=== PATIENT | male | born 1955 | race Caucasian/White ===

== ENCOUNTER → 2017-03-24 | Outpatient (CLI) | payer BC ==
--- NOTE | 2017-03-24 08:41 | Diagnostic Imaging Report ---
INDICATION: Injury to right hand. TIME OF EXAM: 8:48 AM 3 views of the right hand were obtained. FINDINGS: The metacarpals are intact. The phalanges appear intact. No fractures are seen. The carpus is unremarkable. Joint spaces are fairly well-maintained. IMPRESSION: No acute bony abnormality is detected. Dictated by: Dictated on workstation # [id number]
== END ==
LOC: RAD 08:12
PROVIDERS: ATTEND Nurse Practitioner Family
DX: S69.91XA Unspecified injury of right wrist, hand and finger(s), initial encounter (principal)
CPT/HCPCS: 73130

== ENCOUNTER → 2017-11-08 | Outpatient (CLI) | payer BC ==
[2017-11-08 07:54] LABS: ALANINE AMINOTRANSFERASE 23 U/L (0-55); ALBUMIN 4.2 GM/DL (3.2-4.5); ALKALINE PHOSPHATASE 53 U/L (40-136); BILIRUBIN,TOTAL 0.9 MG/DL (0.1-1.0); BUN/CREATININE RATIO 11; CALCIUM 9.5 MG/DL (8.5-10.1); CARBON DIOXIDE 26 MMOL/L (21-32); CHLORIDE 102 MMOL/L (98-107); CREATININE SERUM 0.76 MG/DL (0.60-1.30); GFR ESTIMATED > 60; GLUCOSE 158 MG/DL (70-105); POTASSIUM 4.1 MMOL/L (3.6-5.0); SODIUM 136 MMOL/L (135-145)
--- NOTE | 2017-11-08 09:06 | Diagnostic Imaging Report ---
PROCEDURE: MR imaging of the brain without contrast. TECHNIQUE: Multiplanar, multisequence MR imaging of the brain was performed without contrast. INDICATION: Slurred speech and dysphasia with right-sided facial droop one week ago. COMPARISON: No prior studies are available for comparison. FINDINGS: Ventricles and sulci are within normal limits. There is marked periventricular and subcortical white matter signal abnormality noted, consistent with chronic microvascular ischemia. No diffusion restriction is identified to suggest acute ischemia. Normal expected flow-voids within the carotid siphons are seen. There is no midline shift. No acute intra-axial or extra-axial hemorrhage is identified. The corpus callosum is unremarkable. The sella and parasellar structures are unremarkable. IMPRESSION: Extensive periventricular and subcortical white matter changes consistent with chronic microvascular ischemia. No acute intracranial process is identified. Dictated by: Dictated on workstation # [id number]
--- NOTE | 2017-11-08 09:41 | Diagnostic Imaging Report ---
PROCEDURE: MR angiography neck without contrast. TECHNIQUE: Non contrast enhanced MR angiography of the neck was performed. Source data was reformatted into rotating MIP projections. INDICATION: Episode of slurred speech, dysphasia and right-sided facial droop one week ago. FINDINGS: Both common carotid arteries are widely patent. The carotid bifurcations are unremarkable. The visualized internal carotid arteries appear widely patent. No stenosis is detected. Visualized vertebral arteries are patent. IMPRESSION: Unremarkable MRA of the neck. Dictated by: Dictated on workstation # [id number]
== END ==
LOC: RAD 07:11
PROVIDERS: ATTEND Family Medicine
DX: E11.9 Type 2 diabetes mellitus without complications (principal); R29.810 Facial weakness; R47.02 Dysphasia; R90.82 White matter disease, unspecified; R47.81 Slurred speech
CPT/HCPCS: 36415; 70547; 70551; 80053; 83036

== ENCOUNTER → 2017-11-24 | Outpatient (CLI) | payer BC ==
[~2017-11-24] MED LIST: ASPI-586 PO; ATOR40TA70 PO; LISI10TA2 PO; METF-397 PO
--- NOTE | 2017-11-24 12:37 | Diagnostic Imaging Report ---
INDICATION: Recent stroke and dysphagia. PROCEDURE: The procedure was performed in conjunction with speech pathology. Videofluoroscopy was performed during swallowing of barium at multiple consistencies. A total of 2 minutes and 9 seconds of fluoroscopic time was utilized. Patient ingested thin and thick barium as well as barium paste, pur?e, mechanical soft and soft consistency. There is mild early spillover with multiple consistencies. There were 2-3 episodes of laryngeal penetration during swallowing of thick barium. However, this was with large boluses. No penetration was observed with any other consistency. No aspiration was observed. There is no significant vallecular or piriform sinus residue. IMPRESSION: Essentially unremarkable video swallow apart from episode of penetration during swallowing of thick barium. No aspiration was observed. Dictated by: Dictated on workstation # [id number]
== END ==
LOC: RAD 09:45
PROVIDERS: ATTEND Family Medicine
DX: I69.991 Dysphagia following unspecified cerebrovascular disease (principal); R13.10 Dysphagia, unspecified
CPT/HCPCS: 74230

== ENCOUNTER 2017-11-27 05:40 | Outpatient (CLI) | payer BC ==
[~2017-11-27] VITALS: Ht 177.8 cm; Wt 90.7 kg
[2017-11-27] MEDS ORDERED: ATOR40TA70 PO (11:05)
[2017-11-27] MEDS ORDERED: METF-397 PO (11:05)
[2017-11-27] MEDS ORDERED: LISI10TA2 PO (11:05)
[2017-11-27] MEDS ORDERED: ASPI-586 PO (11:06)
== END 2017-11-27 11:10 | disposition home or self-care (01) ==
LOC: PREOP 05:40
PROVIDERS: ATTEND Surgery
DX: Z01.818 Encounter for other preprocedural examination (principal)

== ENCOUNTER 2017-12-04 08:11 | Day surgery (SDC) | payer BC ==
[~2017-12-04] VITALS: Ht 177.8 cm; Wt 90.7 kg
--- OUTSIDE RECORDS SUMMARY | 2017-12-04 08:17 | XMS REPORT | Continuity of Care Document ---
Demographics Preferred Language Unknown Marital Status Unknown Taoist Affiliation Unknown Race Unknown Ethnic Group Unknown Author Author [facility] Address Unknown Phone Unavailable Allergies Active Description Code Type Severity Reaction Onset Reported/Identified Relationship to Patient Clinical Status Yes No Known Allergies [id number] Miscellaneous Allergy Unknown N/A Yes No Known Drug Allergies [id number] Drug Allergy Unknown N/A 11/27/2017 Medications There is no data. 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, UNSPECIFIED 11/22/2017 BENJAMIN STEWART MD Ot E11.9 TYPE 2 DIABETES MELLITUS WITHOUT COMPLIC 11/22/2017 BENJAMIN STEWART MD Ot R29.810 FACIAL WEAKNESS 11/22/2017 BENJAMIN STEWART MD, Ot R47.02 DYSPHASIA 11/22/2017 BENJAMIN STEWART MD, Ot R47.81 SLURRED SPEECH 11/22/2017 BENJAMIN STEWART MD, Ot 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 Results Test Result Range CBC WITH DIFF - 10/28/17 10:45 FINGER STICK NO CBCWITHDIFF WBC 5.9 10^3uL 4.0 - 11.0 RBC 4.44 10^6uL 4.20 - 5.40 HEMOGLOBIN 14.7 g/dL 13.5 - 16.0 HEMATOCRIT 41.0 % 35.0 - 58.0 MCV 92.3 fl 78.0 - 95.0 MCH 33.1 pg 25.0 - 35.0 MCHC 35.9 g/dL 32.0 - 36.0 RDW 13.3 % 11.5 - 14.5 PLATELETS 154 10^3uL 130 - 400 %NEUTROPHILS 57.8 % 35.0 - 75.0 %LYMPHOCYTES 30.7 % 20.0 - 53.0 %MONOCYTES 9.5 % 0.0 - 10.0 %EOSINOPHILS 1.20 % 0.00 - 8.00 %BASOPHILS 0.50 % 0.00 - 2.00 %IG 0.30 % 0.00 - 0.90 #NEUTROPHILS 3.40 1.80 - 7.50 #LYMPHOCYTES 1.81 0.70 - 3.10 #MONOCYTES 0.56 0.20 - 0.90 #EOSINOPHILS 0.07 0.00 - 0.50 #BASOPHILS 0.03 0.00 - 0.10 #IG 0.02 0.00 - 0.03 MANUAL DIFF NOT INDICATED RBC MORPH NOT INDICATED %NRBC 0.00 % 0.00 - 10.00 #NRBC 0.00 0.40 - 1.10 PT/PTT - 10/28/17 10:45 PROTIME 11.4 secs 8.1 - 12.6 INR 1.0 0.7 - 1.2 PTT 32.4 secs 25.2 - 37.5 PT/PTT COMP METABOLIC PROFILE - 10/28/17 10:45 COMPMETABOLICPROFILE FASTING SPECIMEN? UNKNOWN FINGER STICK NO SODIUM 130 mmol/L 136 - 145 POTASSIUM 3.8 mmol/L 3.5 - 5.3 CHLORIDE 96 mmol/L 98 - 107 TOTAL CO2 28 mmol/L 21 - 32 GLUCOSE 273 mg/dL 65 - 110 BUN 8 mg/dL 7 - 18 CREATININE 0.8 mg/dL 0.8 - 1.1 TOTAL BILI 1.0 mg/dL 0.0 - 1.0 DIRECT BILI 0.2 mg/dL 0.0 - 0.3 INDIRECT BILI 0.8 mg/dl 0.1 - 1.0 ALKALINE PHOS 71 U/L 50 - 136 SGPT/ALT 35 U/L 12 - 78 SGOT/AST 13 U/L 15 - 45 TOTAL PROTEIN 7.8 g/dL 6.4 - 8.2 ALBUMIN 3.9 g/dL 3.4 - 5.6 CALCIUM 9.1 mg/dL 8.5 - 10.0 AGE 62 YEARS GFR 104 ml/min/1.7 eGFR >60 mL/min/1.7 GFR >60 mL/min/1.7 TROP I - 10/28/17 10:45 TROP I <0.02 ng/ml 0.00 - 0.06 UA WITH MICROSCOPY/CULTURE IF INDICATED - 10/28/17 12:10 URINE SAMPLE RANDOM U COLOR Yellow NORMAL: STRAW-YELLOW U TURBIDITY Clear NORMAL: CLEAR U SP GRAVITY 1.015 NORMAL: 1.005-1.030 U NITRITE Negative NORMAL: NEGATIVE U pH 7.5 NORMAL: 5.0-8.0 U PROTEIN Negative NORMAL: NEGATIVE U GLUCOSE 3+ NORMAL: NEGATIVE U KETONES Negative NORMAL: NEGATIVE U UROBILINOGEN 1.0 NORMAL: 0.2 mg/dl U BILIRUBIN Negative NORMAL: NEGATIVE U BLOOD Negative NORMAL: NEG - TRACE U LEUKO ANTHONY Negative NORMAL: NEGATIVE U MICROSCOPIC Not Indicated U CULTURE SET NO Sample of Urine: 10 ML UAMICROSCOPYANDCULTUREIFINDICATED Comprehensive metabolic panel - 11/08/17 07:25 Serum or plasma sodium measurement (moles/volume) 136 mmol/L 135-145 Serum or plasma potassium measurement (moles/volume) 4.1 mmol/L 3.6-5.0 Serum or plasma chloride measurement (moles/volume) 102 mmol/L 98-107 Carbon dioxide 26 mmol/L 21-32 Serum or plasma anion gap determination (moles/volume) 8 mmol/L 5-14 Serum or plasma urea nitrogen measurement (mass/volume) 8 mg/dL 7-18 Serum or plasma creatinine measurement (mass/volume) 0.76 mg/dL 0.60-1.30 Serum or plasma urea nitrogen/creatinine mass ratio 11 NRG Serum or plasma creatinine measurement with calculation of estimated glomerular filtration rate > NRG Serum or plasma glucose measurement (mass/volume) 158 mg/dL 70-105 Serum or plasma calcium measurement (mass/volume) 9.5 mg/dL 8.5-10.1 Serum or plasma total bilirubin measurement (mass/volume) 0.9 mg/dL 0.1-1.0 Serum or plasma alkaline phosphatase measurement (enzymatic activity/volume) 53 U/L 40-136 Serum or plasma aspartate aminotransferase measurement (enzymatic activity/ volume) 16 U/L 5-34 Serum or plasma alanine aminotransferase measurement (enzymatic activity/volume ) 23 U/L 0-55 Serum or plasma protein measurement (mass/volume) 7.0 g/dL 6.4-8.2 Serum or plasma albumin measurement (mass/volume) 4.2 g/dL 3.2-4.5 CALCIUM CORRECTED 9.3 mg/dL 8.5-10.1 Hemoglobin A1c - 11/08/17 07:25 Blood hemoglobin A1C measurement (mass/volume) 7.0 % 4.0- 5.6 MEAN BLOOD GLUCOSE 154 % <=126 Encounters ACCT No. Visit Date/Time Discharge Status Pt. Type Provider Facility Loc./Unit Complaint [id number] 12/30/2011 10:07:00 12/30/2011 23:59:59 CLS Outpatient [id number] 10/28/2017 10:42:00 10/28/2017 12:40:00 DIS Emergency JOESHANA AVILAEL [facility] 042 [id number] 11/30/2017 10:42:00 11/30/2017 23:59:59 CLS Preadmit BENJAMIN STEWART MD [facility] REHAB CVA [id number] 11/27/2017 05:40:00 11/27/2017 11:10:00 DIS Outpatient DEBO LEACH MD [facility] PREOP COLONOSCOPY [id number] 11/24/2017 09:45:00 11/24/2017 23:59:59 CLS Outpatient BENJAMIN STEWART MD [facility] RAD DYSPHAGIA [id number] 11/20/2017 10:10:00 11/20/2017 23:59:59 CLS Preadmit BENJAMIN STEWART MD [facility] CARD SLURRED SPEECH,FACIAL DROOP [id number] 11/20/2017 10:04:00 11/20/2017 23:59:59 CLS Preadmit BENJAMIN STEWART MD [facility] RAD SLURRED SPEECH, FACIAL DROOP [id number] 11/08/2017 07:11:00 11/08/2017 23:59:59 CLS Outpatient PAT DARNELL, BENJAMIN Lama [facility] RAD SLURRED SPEECH,FACIAL DROOP,DYSPHAGIA [id number] 03/24/2017 08:12:00 03/24/2017 23:59:59 CLS Outpatient GLORIA BELLAMY APRN [facility] RAD M79.641 [id number] 12/04/2017 08:00:00 PEN Preadmit HAYLEE DARNELL, DEBO Abdi [facility] ENDO SCREENING
[2017-12-04] MEDS ORDERED: NS IV 500 ML 500 ML IV PRN (08:23)
[2017-12-04] MEDS ORDERED: NS IV 500 ML 500 ML ONE (08:25)
[2017-12-04] MEDS ORDERED: MIDAZOLAM 2 MG/2 ML (VERSED) VIAL IVP ONE (08:30)
[2017-12-04] MEDS ORDERED: fentaNYL INJECTION 100 MCG/2 ML AMP IVP ONE (08:30)
[2017-12-04] MEDS ORDERED: fentaNYL INJECTION 100 MCG/2 ML AMP ONE (09:42)
[2017-12-04] MEDS ORDERED: MIDAZOLAM 2 MG/2 ML (VERSED) VIAL ONE ×3 (09:42)
--- NOTE | 2017-12-04 10:32 | Endo Procedure Record ---
Endo Procedure Report Date of Procedure Last Colonoscopy: Yes Dec 04, 2017 Surgeon (s) DEBO LEACH MD Post Procedure/Op Diagnosis sigmoid diverticulosis Procedure Performed colonoscopy to cecum Description of Procedure Anesthesia Type: Conscious Sedation Specimen(s) collected/removed none Description of the Procedure Indication for the procedure: This gentleman came in for screening colonoscopy. He denied any relevant family history. Due to recent cerebrovascular accident , it was felt reasonable to continue his aspirin. Increased incidence of bleeding, should polypectomy be performed in view of aspirin therapy was discussed with him and informed consent obtained. Description of the procedure: He was placed in left lateral position and vital signs were monitored. Conscious sedation was achieved using Versed and fentanyl. Digital rectal examination was unremarkable. The colonoscope was then introduced into the rectum and advanced to the cecum The quality of bowel preparation was reasonable. The scope was then withdrawn slowly and the mucosa examined in a systematic fashion. Findings: Sigmoid diverticulosis. He tolerated the procedure well and was taken back to the nursing area in a stable condition. Impression: Screening colonoscopy. No polyps. Incidental diverticulosis. No family history. Recommend repeating in 10 years. Copy Copies To 1: BENJAMIN STEWART MD, XAVIER M MD Dec 04, 2017 10:32
--- NOTE | 2017-12-04 10:36 | Conscious Sedation/ASA ---
Conscious Sedation Pre-Proced Time 09:50 ASA Score 2 For ASA 3 and 4: Consider anesthesia and medical clearance. Also, for patients with a history of failed moderate sedation consider anesthesia. Airway Lungs Heart ASA score ASA 1: a normal healthy patient ASA 2: a patient with a mild systemic disease (mid diabetes, controlled hypertension, obesity ASA 3: a patient with a severe systemic disease that limits activity (angina , COPD, prior Myocardial infarction) ASA 4: a patient with an incapacitating disease that is a constant threat to life (CHF, renal failure) ASA 5: a moribund patient not expected to survive 24 hrs. (ruptured aneurysm) ASA 6: a declared brain patient whose organs are being harvested. For emergent operations, add the letter E after the classification Mallampati Classification Grade 1 Sedation Plan Discussed options with patient/fam The patient is an appropriate candidate to undergo the planned procedure, sedation, and anesthesia. The patient immediately re-assessed prior to indication. DEBO LEACH MD Dec 04, 2017 10:36
--- NOTE | 2017-12-04 10:36 | History & Physicial ---
History of Present Illness History of Present Illness Reason for visit/HPI to undergo screening colonoscopy. No family history of colon cancer.Cerebrovascular accident a month ago, with very minimal impairment of motor function. Date of Admission 12/04/17 Date Seen by a Provider: Dec 04, 2017 Time Seen by a Provider: 09:45 I consulted on this patient on 12/04/17 10:32 Attending Physician Debo Miranda MD Admitting Physician Akbar Mancilla MD Consult Allergies and Home Medications Allergies Coded Allergies: No Known Drug Allergies (Unverified , 11/27/17) Home Medications Aspirin 81 Mg Tablet.dr, 81 MG PO DAILY, (Reported) Atorvastatin Calcium 40 Mg Tablet, 40 MG PO HS, (Reported) Lisinopril 10 Mg Tablet, 10 MG PO BID, (Reported) Metformin HCl 500 Mg Tablet, 500 MG PO BID, (Reported) Patient Home Medication List Home Medication List Reviewed: Yes Past Lfqqqjr-Goxzau-Dvgzwi Hx Patient Social History Marrital Status: Employed/Student: employed Recent Foreign Travel: No Contact w/other who traveled: No Respiratory No Cardiovascular No Gastrointestinal No Musculoskeletal No Endocrine History of Endocrine Disorders: No HEENT History of HEENT Disorders: No Cancer No Review of Systems Constitutional: no symptoms reported EENTM: no symptoms reported Respiratory: no symptoms reported Cardiovascular: no symptoms reported Gastrointestinal: no symptoms reported Genitourinary: no symptoms reported Musculoskeletal: no symptoms reported Skin: no symptoms reported Psychiatric/Neurological: See HPI Physical Exam Vital Signs Capillary Refill : Height, Weight, BMI Height: '" Weight: lbs. oz. kg; BMI Method: General Appearance: No Apparent Distress Neck: Normal Inspection Gastrointestinal: Non Tender, Soft Rectal: Deferred Neurologic/Psychiatric: Alert, Oriented x3 Skin: Warm/Dry Assessment/Plan Assessment and Plan gentleman to undergo screening colonoscopy. Recent stroke, recovery. Aspirin therapy. Increased risk of post polypectomy bleeding, should a polyp be discovered and the inherent complications of perforation discussed thoroughly. Seems to be in agreement to proceed Admission Diagnosis Admission Status: Other (Outpt Proc) DEBO MIRANDA MD Dec 04, 2017 10:36
--- NOTE | 2017-12-04 10:38 | Discharge Inst-Simple/Standard ---
Discharge Inst-Standard Discharge Medications New, Converted or Re-Newed RX: Other Patient Instructions/Follow Up Plan of Care/Instructions/FU: repeat colonoscopy in 10 years. Please provide information on diverticular disease and diet Activity as Tolerated: Yes Discharge Diet: No Restrictions DEBO LEACH MD Dec 04, 2017 10:38
[2017-12-04 10:40] VITALS: BP 107/61
[2017-12-04 11:10] VITALS: BP 117/74
[2017-12-04 11:21] VITALS: BP 137/84
[2017-12-04 11:50] VITALS: BP 137/84
== END 2017-12-04 11:50 | disposition home or self-care (01) ==
LOC: ENDO 08:11
PROVIDERS: ATTEND Surgery
DX: Z12.11 Encounter for screening for malignant neoplasm of colon (principal); K57.30 Diverticulosis of large intestine without perforation or abscess without bleeding; Z86.73 Personal history of transient ischemic attack (TIA), and cerebral infarction without residual deficits; Z79.82 Long term (current) use of aspirin; Z79.84 Long term (current) use of oral hypoglycemic drugs; Z79.899 Other long term (current) drug therapy

== ENCOUNTER → 2017-12-14 | Outpatient (CLI) | payer BC | LOC: CARD 11:52 | PROVIDERS: ATTEND Family Medicine | DX: R47.81 Slurred speech (principal); R29.810 Facial weakness; R13.10 Dysphagia, unspecified | CPT/HCPCS: 93306 ==

== ENCOUNTER 2017-12-26 20:32 | Outpatient (CLI) | payer BC | END 2017-12-27 06:35 | disposition home or self-care (01) | LOC: SLEEP 20:32 | PROVIDERS: ATTEND Family Medicine | DX: G47.33 Obstructive sleep apnea (adult) (pediatric) (principal); R06.83 Snoring; R53.83 Other fatigue; Z86.73 Personal history of transient ischemic attack (TIA), and cerebral infarction without residual deficits | CPT/HCPCS: 95811 ==

== ENCOUNTER 2018-01-18 11:30 | Outpatient (RCR) | payer BC | END 2018-02-28 | disposition home or self-care (01) | PROVIDERS: ATTEND Family Medicine | DX: I69.391 Dysphagia following cerebral infarction (principal); I69.321 Dysphasia following cerebral infarction ==

== ENCOUNTER → 2019-04-29 | Outpatient (CLI) | payer BC ==
--- NOTE | 2019-04-29 07:58 | Diagnostic Imaging Report ---
PROCEDURE: US Gallbladder. TECHNIQUE: Multiple real-time grayscale images were obtained over the right upper quadrant in various projections. INDICATION: Right upper quadrant pain, diarrhea COMPARISON: None available FINDINGS: The liver demonstrates diffusely increased echogenicity without focal hepatic mass. The gallbladder is completely contracted. There is borderline thickening of the gallbladder wall measuring 4 mm. No significant pericholecystic fluid. Negative sonographic Lopez sign. The common bile duct was unable to be visualized secondary to overlying bowel gas. Visualized portions of the pancreas are unremarkable. Visualized portions of the abdominal aorta are unremarkable though is not well seen secondary to overlying bowel gas. The partially visualized inferior vena cava is unremarkable. The right kidney is unremarkable without evidence of hydronephrosis or solid renal mass. No significant free fluid. IMPRESSION: Mild gallbladder wall thickening, favored to relate to the gallbladder being completely contracted. Fatty infiltration of the liver. Otherwise, unremarkable exam. Dictated by: Dictated on workstation # [id number]
== END ==
LOC: RAD 06:52
PROVIDERS: ATTEND Family Medicine
DX: K82.8 Other specified diseases of gallbladder (principal)
CPT/HCPCS: 76705

== ENCOUNTER → 2020-08-06 | Outpatient (CLI) | payer BC, MEDICARE ==
[~2020-08-06] MED LIST changes: -LISI10TA2 PO; +LISI10TA25 PO
--- NOTE | 2020-08-06 13:08 | Diagnostic Imaging Report ---
EXAMINATION: CT chest without contrast (lung screening). TECHNIQUE: Multiple contiguous axial images were obtained through the chest without the use of intravenous contrast according to lung cancer screening protocol. All CT scans use one or more of the following dose optimizing techniques: automated exposure control, MA and/or KvP adjustment based on patient size and exam type or iterative reconstruction. HISTORY: 16 pack year history of smoking. COMPARISON: None available. FINDINGS: Thyroid: The thyroid is normal. Mediastinum: Heart size is normal with small pericardial effusion. Calcifications of the aorta and coronary vessels. Thoracic aorta is normal in caliber. There are calcified mediastinal lymph nodes. There is a prominent subcarinal lymph node measuring up to 1.4 cm in short axis. Lungs and airways: There are moderate bilateral pleural effusions with adjacent atelectasis or consolidation. No pneumothorax. Pulmonary nodules measuring up to 0.3 cm in the right middle lobe. The airways are normal. Upper abdomen: Calcified granuloma within the liver. Musculoskeletal: Degenerative changes of the spine without suspicious osseous lesion or compression fracture. IMPRESSION: 1. Pulmonary nodules measuring up to 0.3 cm. Recommend continued annual low-dose CT screening. 2. Moderate bilateral pleural effusions and prominent subcarinal lymph node are nonspecific. LUNG-RADS CATEGORY: 2 MODIFIER: None. Dictated by: Dictated on workstation # [id number]
== END ==
LOC: RAD 12:45
PROVIDERS: ATTEND Family Medicine
DX: Z12.2 Encounter for screening for malignant neoplasm of respiratory organs (principal); J90 Pleural effusion, not elsewhere classified; R91.8 Other nonspecific abnormal finding of lung field; Z87.891 Personal history of nicotine dependence
CPT/HCPCS: 71271

== ENCOUNTER → 2020-08-26 | Outpatient (CLI) | payer BC | LOC: CARD 08:30 | PROVIDERS: ATTEND Family Medicine | DX: I08.3 Combined rheumatic disorders of mitral, aortic and tricuspid valves (principal); J90 Pleural effusion, not elsewhere classified | CPT/HCPCS: 93306 ==

== ENCOUNTER → 2021-09-22 | Outpatient (CLI) | payer BC, MEDICARE ==
--- NOTE | 2021-09-22 11:28 | Diagnostic Imaging Report ---
EXAMINATION: CT Lung Screening. INDICATION: 03-oalf-htdv smoking history, for annual low-dose CT screening. TECHNIQUE: Noncontrast, low-dose CT imaging performed according to the lung cancer screening protocol. Auto Exposure Controls were utilized during the CT exam to meet ALARA standards for radiation dose reduction. COMPARISON: 08/06/2020. FINDINGS: No dominant spiculated or suspicious lung mass. Benign calcified granuloma in the right middle lobe is chronic. A few minute 2-3 mm subpleural micronodules are stable. No findings of lung cancer. No evidence for pulmonary edema or pneumonia. Previous sternotomy without dehiscence. There are dense calcifications of the [place] aortic vessels. No pleural or pericardial effusion. There is no pneumothorax. No acute chest wall pathology. The aorta is nonaneurysmal. IMPRESSION: No findings of lung cancer; continued annual low-dose CT screening follow-up is recommended. LUNG-RADS CATEGORY: 2. MODIFIER: None. OTHER SIGNIFICANT FINDINGS: Benign granulomatous residua. Atherosclerotic disease. No acute appearing abnormality. Dictated by: Dictated on workstation # [id number]
== END ==
LOC: RAD 09:30
PROVIDERS: ATTEND Family Medicine
DX: Z12.2 Encounter for screening for malignant neoplasm of respiratory organs (principal); F17.210 Nicotine dependence, cigarettes, uncomplicated
CPT/HCPCS: 71271